=== PATIENT | female | born 1985 | race Caucasian/White ===

== ENCOUNTER 2020-04-18 04:47 | Inpatient (IN) | payer OTHER ==
[2020-04-18 05:18] VITALS: BMI 37.3
[2020-04-18 05:55] LABS: Amnisure Test RUPTURE DETECTED (No Rupture)
[2020-04-18 05:57] LABS: Amnisure Internal Control QC ACCEPTABLE (ACCEPTABLE)
[2020-04-18] MEDS ORDERED: Promethazine HCl 25 MG/ML VIAL IM PRN ×3 (06:53→22:42)
[2020-04-18] MEDS ORDERED: Butorphanol Tartrate 1 MG/ML VIAL SLOW IVP PRN (06:53)
[2020-04-18] MEDS ORDERED: Lidocaine 1% (PF) 30 ML VIAL SC PRN (06:53)
[2020-04-18] MEDS ORDERED: Ibuprofen 800 MG TAB PO PRN (06:53)
[2020-04-18] MEDS ORDERED: HYDROcodone/Acetaminophen 5/325 mg Tablet PO PRN ×4 (06:53→22:42)
[2020-04-18] MEDS ORDERED: hydrALAZINE 20 MG/ML VIAL SLOW IVP PRN ×2 (06:53→22:42)
[2020-04-18] MEDS ORDERED: Ondansetron PF 4 MG/2 ML Vial IVP PRN ×3 (06:53→22:42)
--- NOTE | 2020-04-18 06:53 | PDOC.EVN ---
Event Note - Event Note Event Note: Asked by MAX Castorena top place courtesy admit orders. Orders only.
[2020-04-18] MEDS: Lactated Ringer's 1,000 ML IV SCH ×3 (07:41→12:26)
[2020-04-18 07:54] LABS: Hemoglobin 12.6 g/dL (12.0-16.0); Mean Corpuscular HGB CONC 32.5 g/dL (32.0-36.0); Mean Corpuscular Hemoglobin 28.5 pg (27.0-31.0); Mean Corpuscular Volume 87.8 fL (78.0-98.0); Mean Platelet Volume 11.5 fL (7.4-10.4); Platelet Count 143 thou/uL (130-400); RBC Distribution Width 12.7 % (11.5-14.5); Red Blood Cell (RBC) Count 4.43 mill/uL (4.20-5.40); White Blood Cell (WBC) Count 12.8 thou/uL (4.8-10.8)
[2020-04-18 08:32] LABS: HBSAg Index 0.16 S/CO (0-0.99); HIV (1/2) Antibody/Antigen Non-Reactive (NonReactive); HIV 1/2 INDEX 0.13 S/CO (<1.00); Hep B Surf Ag Non-Reactive S/CO (NonReactive); Syphilis Antibody Nonreactive (Nonreactive); Syphilis Antibody Index 0.04 S/CO (<1.00 Non-Reactive)
--- NOTE | 2020-04-18 08:52 | PDOC.LDHP ---
Labor and Delivery H&P Chief complaint: loss of fluid HPI: 34yo at 38w3d by LMP c/w LOF since 0345 this am, clear. Some ctx mild pain. Current gestational age (weeks): 38 Due date: 04/29/20 Dating criteria: last menstrual period Grav: 4 Para: 1 Current complications: none Abnormal US findings: No Past Medical History: denies Current medications: pre- vitamins, iron Previous surgical history: none Allergies/Adverse Reactions: Allergies Allergy/AdvReac Type Severity Reaction Status Date / Time No Known Allergies Allergy Verified 04/18/20 05:13 Social history: tobacco use, none - Physical Exam Vital signs reviewed and normal: yes General: NAD Heart: RRR Lungs: CTAB Abdomen: gravid Extremeties: no edema FHT: category 1 [place] contractions every: 2-4min - Vaginal Exam cm dilated: 3 Effacement: 50% Station: -3 (arom forebag, clear) - OB Labs Blood type: B RH: negative Antibody Screen: positive HIV: negative RPR: negative HEPSAg: negative 1 hour GCT: positive 3 hour GTT: neg for GDM GBS: negative Urine drug screen: negative Rubella: immune - Assessment L&D Assessment: term rupture in membranes - Plan Plan: admit to L&D, labor augmentation if indicated, informed consent obtained, anesthesia consult for pain management
[2020-04-18] MEDS ORDERED: NS w/ Oxytocin 10 units 500 ML IV SCH (09:00)
[2020-04-18] MEDS ORDERED: EPHEDRINE 25 MG/5 ML SYRINGE ONE (09:18)
[2020-04-18] MEDS ORDERED: Bupivacaine/Epinephrine 0.25% 30 ML VIAL ONE (09:18)
[2020-04-18] MEDS ORDERED: Fentanyl 4 mcg/Bup 0.1% Cadd 100 ML ONE ×2 (09:24→17:37)
[2020-04-18] MEDS ORDERED: Lactated Ringer's 500 ML IV PRN (09:52)
[2020-04-18] MEDS ORDERED: diphenhydrAMINE 50 MG/ML VIAL IVP PRN (09:52)
[2020-04-18] MEDS ORDERED: EPHEDRINE 25 MG/5 ML SYRINGE SLOW IVP PRN (09:52)
[2020-04-18] MEDS ORDERED: Naloxone HCl 0.4 mg/ml Vial IVP PRN ×2 (09:52)
[2020-04-18] MEDS ORDERED: Acetaminophen 325 MG TAB PO PRN (09:52)
[2020-04-18] MEDS ORDERED: Fentanyl 4 mcg/Bupivacaine 0.1% Cassette 100 ML EPIDURAL SCH (10:00)
[2020-04-18] MEDS ORDERED: Communication Order-Pharmacy FS SCH (10:00)
--- NOTE | 2020-04-18 12:34 | PDOC.LDPN ---
Labor & Delivery Progress Note - Subjective Subjective: comfortable - Objective Vital signs reviewed and normal: yes General: NAD Uterine fundus: non tender Dilation: 3 Effacement: 50% Station: -3 FHT: category 1 [place] contractions every: 3-4min Plan: labor augmentation
[2020-04-18] MEDS ORDERED: Lidocaine 1% (PF) 30 ML VIAL ONE (18:44)
[2020-04-18] MEDS ORDERED: NS / Oxytocin 40 units/1000ml 1,000 ML ONE (18:44)
[2020-04-18] MEDS: NS / Oxytocin 40 units/1000ml 1,000 ML IV PRN ×2 (20:15→22:28)
[2020-04-18] MEDS ORDERED: Methylergonovine 0.2 MG/ML VIAL ONE (20:17)
[2020-04-18] MEDS ORDERED: Misoprostol 200 MCG TAB ONE (20:18)
[2020-04-18 20:29] LABS: Actual Bicarbonate (HCO3a) 20.7 mEq/L (22-28); Base Excess (BEa) -7.9 mEq/L (-2.0 to +3.0)
--- NOTE | 2020-04-18 20:29 | PDOC.OPDEL ---
OB Operative/Delivery Note Delivery Dr/Surgeon: Shantell Assist: n/a Pre-Delivery Diagnosis: elective induction Procedure/Post Delivery Dx: spontaneous vaginal delivery Weeks gestation: 39 Anesthesia: epidural - Findings A Sex: male - 1 min: 7 - 5 min: 6 - Additional Findings/Plan Placenta delivered: spontaneous Repaired Obstetrical Laceration: periurethral Estimated blood loss: 400 Compilations/Other Findings: NC x 1 tight, body cord x 1, true knot in cord. No dystocia Post delivery plan: routine recovery
[2020-04-18 20:32] LABS: Actual Bicarbonate (HCO3v) 19 mEq/L (22-28); Base Excess -7.3 mEq/L (-2.0 to +3.0); pH (Cord, venous) 7.29 (7.32-7.43)
[2020-04-18] MEDS ORDERED: NS / Oxytocin 40 units/1000ml 1,000 ML IV SCH (22:42)
[2020-04-18] MEDS ORDERED: diphenhydrAMINE 25 MG CAP PO PRN (22:42)
[2020-04-18] MEDS ORDERED: Lanolin Ointment 7 GM TUBE TOP PRN (22:42)
[2020-04-18] MEDS ORDERED: Preparation H Ointment 28 GM TUBE PR PRN (22:42)
[2020-04-18] MEDS ORDERED: Bisacodyl 10 MG SUPP PR PRN (22:42)
[2020-04-18] MEDS ORDERED: Milk Of Magnesia 30 ML UDCUP PO PRN (22:42)
[2020-04-18] MEDS ORDERED: Ibuprofen 800 MG TAB PO SCH (23:30)
[2020-04-18] MEDS ORDERED: Docusate Calcium (SURFAK) 240 MG CAP PO SCH (23:30)
[2020-04-18] MEDS: Benzocaine-Menthol 82.5 ML CAN TOP PRN ×2 (23:34→23:41)
[2020-04-19] MEDS: Ibuprofen 800 MG TAB PO SCH ×3 (05:49→22:16)
[2020-04-19] MEDS ORDERED: Adacel (T-DAP) 0.5 ML SYRINGE IM ONE (09:00)
[2020-04-19] MEDS: Ferrous Sulfate 325 MG TAB PO SCH ×2 (09:02→19:48)
[2020-04-19] MEDS: Docusate Calcium (SURFAK) 240 MG CAP PO SCH ×2 (09:02→22:16)
[2020-04-19] MEDS: Prenatal Vitamin 1 TAB PO SCH (09:02)
--- NOTE | 2020-04-19 17:36 | PDOC.PP ---
Post Progress Note Post Day #: 1 PO intake tolerated: yes Flatus: yes Ambulation: yes Vital Signs (12 hours) Temp Pulse Resp BP Pulse Ox 04/19/20 11:35 98.0 F 97 20 100/57 L 96 04/19/20 07:51 98.4 F 88 20 99/55 L 95 04/19/20 05:46 98.5 F 104 H 18 134/60 Weight Weight 204 lb - Physical Examination General: NAD Respiratory: non-labored breathing Abdominal: appropriately TTP Fundus firm & at: umb Neurological: no gross focal deficits Psychiatric: normal affect Result Diagrams: 04/18/20 07:04 Additional Labs: Post Labs Blood Type B NEGATIVE 04/18/20 08:16 Hep Bs Antigen Non-Reactive S/CO (NonReactive) 04/18/20 07:04 - Assessment/Plan PPD1 s/p TSVD VSSAF Doing well lochia < menses Rh neg s/p RHIG, RImm Cont PP care, home tomorrow
[2020-04-20] MEDS: Ibuprofen 800 MG TAB PO SCH ×2 (05:24→14:29)
[2020-04-20] MEDS: Ferrous Sulfate 325 MG TAB PO SCH (08:37)
[2020-04-20] MEDS: Prenatal Vitamin 1 TAB PO SCH (09:10)
[2020-04-20] MEDS: Docusate Calcium (SURFAK) 240 MG CAP PO SCH (09:10)
[2020-04-20 09:33] VITALS: BP 121/68; TEMP 98.2
--- NOTE | 2020-04-20 15:06 | PDOC.PP ---
Post Progress Note Post Day #: 1 PO intake tolerated: yes Flatus: yes Ambulation: yes Vital Signs (12 hours) Temp Pulse Resp BP 04/20/20 09:10 98.2 F 84 18 121/68 04/20/20 05:25 76 Weight Weight 204 lb - Physical Examination General: NAD Respiratory: non-labored breathing Skin: no rash Neurological: no gross focal deficits Psychiatric: normal affect Result Diagrams: 04/18/20 07:04 Additional Labs: Post Labs Blood Type B NEGATIVE 04/18/20 08:16 Hep Bs Antigen Non-Reactive S/CO (NonReactive) 04/18/20 07:04 - Assessment/Plan PPD2 s/p TSVD VSSAF Doing well, pain controlled DC home FU 6w
== END 2020-04-20 15:32 | disposition home or self-care (01) | DRG 807 ==
LOC: L&D/OP 04:47 → L&D 06:20 → L&D/OP 08:02 → L&D 08:03 → 3SE 22:56
PROVIDERS: ADMIT Student in an Organized Health Care Education/Training Program; ATTEND Student in an Organized Health Care Education/Training Program
PROC: 10E0XZZ Delivery of Products of Conception, External Approach (ICD-10-PCS; principal; 2020-04-18)
PROC: 0UQMXZZ Repair Vulva, External Approach (ICD-10-PCS; 2020-04-18)
DX: O69.1XX0 Labor and delivery complicated by cord around neck, with compression, not applicable or unspecified (principal); Z37.0 Single live birth; O99.334 Smoking (tobacco) complicating childbirth; F17.210 Nicotine dependence, cigarettes, uncomplicated; O71.82 Other specified trauma to perineum and vulva; Z3A.39 39 weeks gestation of pregnancy
CPT/HCPCS: 36415; 51702; 82805; 84112; 85027; 85461; 86780; 86850; 86870; 86900; 86901; 87340; 87389; 90384; 96372; 99285; J2001; J2210; J2405; J2590